=== PATIENT | female | born 1995 | race Caucasian/White ===

== ENCOUNTER 2019-03-30 06:12 | Emergency (ER) | payer OTHER, SELFPAY ==
[2019-03-30 06:22] VITALS: BP 128/68; PULSE 117; RESP 16; TEMP 36.8; O2SAT 98; BMI 27.4
[2019-03-30 06:50] LABS: Mucus Urine 2+ (Negative); RBC Urine 0-1/HPF (0-5/HPF); Squamous Epithelial Cell Urine 5-10 /HPF (0-5/HPF); WBC Urine 0-1/HPF (0-5/HPF)
--- NOTE | 2019-03-30 06:50 | ED.NAVMDI ---
HPI - Nausea/Vomiting/Diarrhea General Chief complaint: Nausea/Vomiting/Diarrhea Stated complaint: Vomiting/diarrhea all night Time Seen by Provider: 03/30/19 06:50 Source: patient Mode of arrival: Ambulatory Limitations: no limitations History of Present Illness HPI Narrative: 23-year-old otherwise healthy young woman who began having vomiting and diarrhea a couple of hours after having pain that expressed food last night. She notes that she ate egg rolls and her boyfriend did not. He has not gotten sick. She thinks she may have had a low-grade fever but it was in the midst of the active vomiting that she noticed feeling warm. Now she reports slight orthostasis and general malaise along with dry heaves and increasing diarrhea. She has had no blood in either emesis or stool. No cough, muscular abdominal pain from the effort of vomiting only, she is well perfused, no headache. Related Data Allergies Allergy/AdvReac Type Severity Reaction Status Date / Time No Known Drug Allergies Allergy Verified 03/30/19 06:34 Review of Systems Review of Systems ROS Unobtainable: All systems reviewed & are unremarkable except as noted in HPI and below Patient History Social History Smoking Status: Never smoker Smoking Status: Never smoker alcohol intake frequency: 0-2 drinks per day Substance Use Type: does not use Exam Narrative Exam Narrative: GENERAL: 23 year old patient appears stated age. Well-nourished, well-developed patient, in mild distress. HEAD: Atraumatic. Normocephalic. Dark circles under her eyes EYES: Pupils equal round and reactive.No scleral icterus. No injection or drainage. ENT: Throat without erythema, or exudate. Airway patent. NECK: Trachea midline. Non tender CARDIOVASCULAR: Tachycardia with regular rhythm, murmurs, gallops, or rubs. RESPIRATORY: Clear to auscultation. Breath sounds equal bilaterally. No wheezes, rales, or rhonchi. GASTROINTESTINAL: Abdomen soft, minimal diffuse tenderness with deep palpation, nondistended. EXTREMITIES: No edema or joint tenderness. NEURO: AOx3. SKIN: No rash or erythema of visible areas Initial Vital Signs Initial Vital Signs: Vital Signs Temperature 98.2 F 03/30/19 06:22 Pulse Rate 117 H 03/30/19 06:22 Respiratory Rate 16 03/30/19 06:22 Blood Pressure 128/68 03/30/19 06:22 Pulse Oximetry 98 03/30/19 06:22 Course Orders Ordered: ED Orders 03/30/19 06:25 Urine Microscopic Stat 03/30/19 07:15 Complete Blood Count AUTO DIFF Stat Comprehensive Metabolic Panel Stat Lipase Stat Discontinued Medications Sodium Chloride (Normal Saline 0.9%) 500 mls @ 1,000 mls/hr IV BOLUS ONE Stop: 03/30/19 07:32 Last Infusion: 03/30/19 08:51 Dose: 0 mls/hr Documented by: Admin: 03/30/19 07:26 Dose: 1,000 mls/hr Documented by: ABAD Ondansetron HCl (Zofran) 4 mg IV NOW ONE Stop: 03/30/19 07:04 Last Admin: 03/30/19 07:24 Dose: 4 mg Documented by: ABAD Vital Signs Vital signs: Vital Signs - 8 hr 03/30/19 06:22 03/30/19 09:10 03/30/19 09:34 Temperature 98.2 F Pulse Rate 117 H 105 H Respiratory Rate 16 12 Blood Pressure 128/68 Blood Pressure [Left Arm] 126/83 115/60 Pulse Oximetry 98 97 MDM - Nausea/Vomiting/Diarrhea Differential Diagnosis Differential diagnosis: Likely traveler's diarrhea, food poisoning, gastroenteritis, clostridium difficile infection and dehydration Medical Records Attestation: I reviewed the patient's medical records. Lab Data Attestation: I reviewed the patient's lab results. Result diagrams: 03/30/19 07:15 03/30/19 07:15 Labs: Lab Results 03/30/19 03/30/19 03/30/19 Range/Units 06:25 07:15 07:15 WBC 22.5 H (4.5-11.0) X10^3/uL RBC 4.90 (4.0-5.2) X10^6/uL Hgb 14.1 (12.0-16.0) g/dL Hct 42.2 (36-46) % MCV 86.2 (80-100) fL MCH 28.8 (26-34) PG MCHC 33.4 (30-36) % RDW 13.0 (11.6-14.8) % Plt Count 258 (150-400) X10^3/uL Neut % (Auto) 91.8 H (50-75) % Lymph % (Auto) 4.4 L (25-40) % [place] % (Auto) 3.7 (3-14) % Eos % (Auto) 0.0 L (2-4) % Baso % (Auto) 0.1 (0-2) % Neut # (Auto) 92749 H (0645-2464) /uL Lymph # (Auto) 1000 L (5421-0852) /uL [place] # (Auto) 800 (0-900) /uL Eos # (Auto) 0 (0-450) /uL Baso # (Auto) 0 (0-100) /uL Sodium 136 L (137-145) mmol/L Potassium 3.9 (3.4-5.1) mmol/L Chloride 100 (98-107) mmol/L Carbon Dioxide 24 (22-32) mmol/L BUN 16 (7-17) mg/dL Creatinine 0.60 (0.52-1.04) mg/dL Estimated GFR > 60.0 (>60) mL/min BUN/Creatinine Ratio 26.7 H (6-22) Glucose 134 H (70-100) mg/dL Calcium 9.6 (8.4-10.2) mg/dL Total Bilirubin 0.5 (0.2-1.3) mg/dL AST 23 (14-36) IU/L ALT 52 H (<35) IU/L Alkaline Phosphatase 100 (38-126) U/L Total Protein 8.4 H (6.3-8.2) g/dL Albumin 4.7 (3.5-5.0) g/dL Globulin 3.7 (1.7-4.1) g/dL Albumin/Globulin Ratio 1.3 (1.0-2.8) Lipase 32 (23-300) U/L Urine RBC 0-1/hpf (0-5/HPF) Urine WBC 0-1/hpf (0-5/HPF) Ur Squamous Epith Cells 5-10 /hpf H (0-5/HPF) Urine Bacteria Moderate (10-30) H (None) Urine Mucus 2+ H (Negative) Ur Culture Indicated? Cult not indicated Point of Care Testing Test Results Negative Urine Dip Bedside Urine Glucose Negative Bedside Urine Bilirubin + 1 Bedside Urine Ketone +/- 5 Urine Specific [place] 1.020 Bedside Urine Occult Blood +/- Bedside Urine pH 6.0 Bedside Urine Protein + 30 Bedside Urine Urobilinogen +/- 1mg Bedside Urine Nitrite - Negative Bedside Urine Leukocytes +/- 15 Esterase Surprisingly elevated white blood cell count at 22.5 with significant left shift. Not what I would expect with simple food poisoning as the patient was bleeding. Renal function is appropriate but minimally elevated ALT. She has no urinary symptoms there is some mucus and I suspect that the bacteria appreciated on the urinalysis or contamination and don't represent UTI nor pyelonephritis MDM Narrative Medical decision making narrative: After L of fluid and a single dose of Zofran patient is reexamined. She is feeling significantly better able to tolerate juice and crackers. Has absolutely no abdominal pain or other signs of significant infection. I suspect that the acute leukocytosis will resolve. I believe she is safe for home discharge at this time Discharge Plan Departure Patient Disposition: Home Clinical Impression: Nausea, Vomiting, and Diarrhea Instructions: Nausea and Vomiting-Adult Activity Restrictions/Additional Instructions: Thank you for coming in today I agree with you that this very likely represents acute food poisoning and will likely be self-limited and rest of today should be significantly better. Your lab work did show that your white blood cell count, the cells that fight infection, was a bit elevated. We can sometimes see that after an acute episode of nausea and vomiting all night long. If you are feeling worse, developed a fever, continue to have significant vomiting or the diarrhea lasts more than addition an additional 24 hours, you do need to return for additional evaluation I hope you feel better
[2019-03-30 06:51] LABS: Bacteria Urine Moderate (10-30); Culture Indicated Urine Cult Not Indicated
[2019-03-30] MEDS: ONDANSETRON 4 MG/2 ML INJ IV (07:24)
[2019-03-30] MEDS: SODIUM CHLORIDE 0.9% 500 ML 1000 ML IV (07:26)
[2019-03-30 07:34] LABS: Add Manual Diff / Slide Review NO; Basophils Absolute Auto 0 /uL (0-100); Basophils Percent Auto 0.1 % (0-2); Eosinophils Absolute Auto 0 /uL (0-450); Hematocrit 42.2 % (36-46); Hemoglobin 14.1 g/dL (12.0-16.0); Lymphocytes Absolute Auto 1000 /uL (1100-4500); Lymphocytes Percent Auto 4.4 % (25-40); Mean Corpuscular HGB Conc 33.4 % (30-36); Mean Corpuscular Hemoglobin 28.8 PG (26-34); Mean Corpuscular Volume 86.2 fL (80-100); Monocytes Absolute Auto 800 /uL (0-900); Monocytes Percent Auto 3.7 % (3-14); Neutrophils Absolute Auto 20700 /uL (1500-7000); Neutrophils Percent Auto 91.8 % (50-75); Platelet Count 258 X10^3/uL (150-400); White Blood Cell Count 22.5 X10^3/uL (4.5-11.0)
[2019-03-30 07:46] LABS: Albumin 4.7 g/dL (3.5-5.0); Albumin Globulin Ratio 1.3 (1.0-2.8); Alkaline Phosphatase 100 U/L (38-126); Aspartate Aminotransferase 23 IU/L (14-36); BUN Creatinine Ratio 26.7 (6-22); Bilirubin Total 0.5 mg/dL (0.2-1.3); Blood Urea Nitrogen 16 mg/dL (7-17); Calcium 9.6 mg/dL (8.4-10.2); Carbon Dioxide 24 mmol/L (22-32); Chloride 100 mmol/L (98-107); Estimated Glomerular Filt Rate > 60.0 mL/min (>60); Globulin 3.7 g/dL (1.7-4.1); Glucose 134 mg/dL (70-100); HEMOLYSIS < 15 (0-50); Lipase 32 U/L (23-300); Potassium 3.9 mmol/L (3.4-5.1); Sodium 136 mmol/L (137-145); Total Protein 8.4 g/dL (6.3-8.2)
[2019-03-30 07:53] LABS: Alanine Aminotransferase 52 IU/L (<35)
[2019-03-30 09:10] VITALS: BP 126/83; PULSE 105; RESP 12; O2SAT 97
[2019-03-30 09:34] VITALS: BP 115/60
== END 2019-03-30 09:45 | disposition home or self-care (01) ==
PROVIDERS: Emergency Medicine; Emergency Provider Emergency Medicine
DX: R11.2 Nausea with vomiting, unspecified (principal); R19.7 Diarrhea, unspecified; R79.89 Other specified abnormal findings of blood chemistry
CPT/HCPCS: 36415; 80053; 81003; 81015; 81025; 83690; 85025; 96361; 96374; 99284; J2405